=== PATIENT | male | born 1985 | race Caucasian/White ===

== ENCOUNTER 2018-10-07 19:09 | Emergency (ER) | payer BC ==
--- NOTE | 2018-10-07 19:58 | ER Document Report ---
ED Medical Screen (RME) - General Chief Complaint: Numbness of Arm Stated Complaint: NUMBNESS Time Seen by Provider: 10/07/18 19:43 Notes: 33-year-old male patient comes emergency room with multiple neurological symptoms. He reports about 5:15 PM today he developed a blurriness in his vision that involved both eyes. This lasted 20-30 minutes, and resolved and afterwards he developed what he called incoherent speech. He tried to do sign out at work and states that what he was saying was not comprehensible and that he knew what he wanted to say but could not find the words to express himself. This also lasted 20-30 minutes. When it resolved he developed a numbness in the right hand and elbow which also lasted 2030 minutes. There was a mild right -sided headache the entire time the symptoms were occurring. All of the symptoms including the headache have resolved at this point. He reports something similar to this has happened 3 times in the past 6 years, but he is never gone to have medical evaluation of those symptoms. I have greeted and performed a rapid initial assessment of this patient. A comprehensive ED assessment and evaluation of the patient, analysis of test results and completion of the medical decision making process will be conducted by additional ED providers. TRAVEL OUTSIDE OF THE [place] IN LAST 30 DAYS: No - Related Data Allergies/Adverse Reactions: No Known Allergies Allergy (Unverified 10/07/18 19:13) Physical Exam - Vital signs Vitals: Temp Pulse Resp BP Pulse Ox 97.9 F 59 L 20 136/77 H 97 10/07/18 19:41 10/07/18 19:41 10/07/18 19:41 10/07/18 19:41 10/07/18 19:41 Course - Vital Signs Vital signs: Temp Pulse Resp BP Pulse Ox 97.9 F 59 L 20 136/77 H 97 10/07/18 19:41 10/07/18 19:41 10/07/18 19:41 10/07/18 19:41 10/07/18 19:41
[2018-10-07 20:22] LABS: ABSOLUTE BASOPHILS # (AUTO) 0.1 10^3/uL (0.0-0.2); ABSOLUTE EOSINOPHILS # (AUTO) 0.2 10^3/uL (0.0-0.6); ABSOLUTE LYMPHOCYTES (AUTO) 2.5 10^3/uL (0.5-4.7); ABSOLUTE MONOCYTES (AUTO) 0.6 10^3/uL (0.1-1.4); ABSOLUTE NEUT (AUTO) 3.3 10^3/uL (1.7-8.2); BASOPHILS % (AUTO) 1.3 % (0-2); EOSINOPHILS % (AUTO) 2.9 % (0-6); HEMATOCRIT 42.9 % (37.9-51.0); LYMPHOCYTES % (AUTO) 37.7 % (13-45); MEAN CORPUSCULAR HEMOGLOBIN 30.2 pg (27.0-33.4); MEAN CORPUSCULAR HGB CONC 35.1 g/dL (32.0-36.0); MEAN CORPUSCULAR VOLUME 86 fl (80-97); MONOCYTES % (AUTO) 8.8 % (3-13); PLATELET COUNT 305 10^3/uL (150-450); RED BLOOD COUNT 4.99 10^6/uL (4.35-5.55); RED CELL DISTRIBUTION WIDTH 13.1 % (11.5-14.0); SEGMENTED NEUTROPHILS % (AUTO) 49.3 % (42-78); TOTAL CELLS COUNTED % (AUTO) 100 %; WHITE BLOOD COUNT 6.7 10^3/uL (4.0-10.5)
[2018-10-07 20:43] LABS: ALANINE AMINOTRANSFERASE 33 U/L (21-72); ALBUMIN 4.4 g/dL (3.5-5.0); ALKALINE PHOSPHATASE 45 U/L (38-126); ANION GAP 11 (5-19); ASPARTATE AMINO TRANSFERASE 31 U/L (17-59); BILIRUBIN,DIRECT 0.1 mg/dL (0.0-0.4); BILIRUBIN,TOTAL 1.3 mg/dL (0.2-1.3); BLOOD UREA NITROGEN 17 mg/dL (7-20); CARBON DIOXIDE 27 mmol/L (22-30); CHLORIDE 106 mmol/L (98-107); GLUCOSE 94 mg/dL (75-110); POTASSIUM 4.4 mmol/L (3.6-5.0); SODIUM 144.1 mmol/L (137-145); TOTAL PROTEIN 7.4 g/dL (6.3-8.2)
[2018-10-07 20:44] LABS: C-REACTIVE PROTEIN < 5.0 mg/L (<10.0)
[2018-10-07 21:06] LABS: ERYTHROCYTE SEDIMENTATION RATE 4 mm/hr (0-15)
--- NOTE | 2018-10-07 21:24 | RADIOLOGY REPORT (SQ) ---
EXAM DESCRIPTION: MR BRAIN WITHOUT IV CONTRAST COMPLETED DATE/TME: 10/07/2018 19:55 CLINICAL HISTORY: Migratory TIA type symptoms COMPARISON: None TECHNIQUE: Multiplanar images of the brain were obtained without the administration of intravenous contrast FINDINGS: Ventricles and sulci appear within normal limits for the patient's age. No evidence of midline shift or mass effect. No abnormal parenchymal signal noted. No areas of restricted diffusion to suggest acute infarct. No evidence of mass. No extra axial fluid collection. IMPRESSION: No acute abnormalities.
[2018-10-08] MEDS ORDERED: ASPIRIN 81 MG TABLET, CHEWABLE PO ONE (00:50)
--- NOTE | 2018-10-08 00:50 | ER Document Report ---
ED General - General Chief Complaint: Numbness of Arm Stated Complaint: NUMBNESS Time Seen by Provider: 10/07/18 19:43 Mode of Arrival: Ambulatory Information source: Patient Notes: 33-year-old man presented to the emergency room with an episode of thinking coherent speech times 15 minutes, right hand numbness for about 15 minutes and some visual disturbances. Patient states the event occurred at 5:15 PM. His symptoms had resolved completely by the time he was in the ER. He does report that he had a mild right-sided headache during this event. TRAVEL OUTSIDE OF THE [place] IN LAST 30 DAYS: No - HPI Onset: Just prior to arrival Onset/Duration: Gradual Quality of pain: No pain Severity: None Pain Level: Denies Associated symptoms: denies: Chest pain, Fever, Shortness of breath Exacerbated by: Denies Relieved by: Denies Similar symptoms previously: No Recently seen / treated by doctor: No - Related Data Allergies/Adverse Reactions: No Known Allergies Allergy (Unverified 10/07/18 19:13) Past Medical History - General Information source: Patient - Social History Smoking Status: Current Some Day Smoker Cigarette use (# per day): No Chew tobacco use (# tins/day): No Frequency of alcohol use: Occasional Drug Abuse: None Lives with: Family Family History: None Patient has suicidal ideation: No Patient has homicidal ideation: No - Medical History Medical History: Negative Renal/ Medical History: Denies: Hx Peritoneal Dialysis Surgical Hx: Negative Review of Systems - Review of Systems Constitutional: denies: Chills, Fever EENT: No symptoms reported Cardiovascular: No symptoms reported Respiratory: No symptoms reported Gastrointestinal: No symptoms reported Genitourinary: No symptoms reported Male Genitourinary: No symptoms reported Musculoskeletal: No symptoms reported Skin: No symptoms reported Hematologic/Lymphatic: No symptoms reported Neurological/Psychological: See HPI Physical Exam - Vital signs Vitals: Temp Pulse Resp BP Pulse Ox 97.9 F 59 L 20 136/77 H 97 10/07/18 19:41 10/07/18 19:41 10/07/18 19:41 10/07/18 19:41 10/07/18 19:41 Notes: Physical exam: GENERAL: Patient is alert and oriented x3, no acute distress HEAD: Atraumatic, normocephalic. EYES: Pupils equal round and reactive to light, extraocular movements intact, sclera anicteric, conjunctiva are normal. ENT: TMs normal, nares patent, oropharynx clear without exudates. Moist mucous membranes. NECK: Normal range of motion, supple without obvious mass or JVD. Patient has no bruit. LUNGS: Breath sounds clear to auscultation bilaterally and equal. No wheezes rales or rhonchi. HEART: Regular rate and rhythm. She does have a 1/6 systolic murmur at the left lateral sternal border. Rubs or gallops. ABDOMEN: Soft, normoactive bowel sounds. No tenderness to palpation. No guarding, no rebound. No masses appreciated. EXTREMITIES: Normal range of motion, no pitting or edema. No clubbing or cyanosis. NEUROLOGICAL: Cranial nerves II through XII grossly intact. Motor 5/5, sensory grossly intact, cerebellar (finger to nose) good, reflexes symmetrical and normal, normal speech, moving all extremities. Romberg negative. PSYCH: Normal mood, normal affect. SKIN: Warm, Dry, normal turgor, no rashes or lesions noted. Course - Re-evaluation Re-evalutation: 10/08/18 00:45 Note: Patient has no risk factors for early vascular disease. He does have an intermittent soft murmur on heart exam. I discussed this with Dr. Sheets and the plan will be to get an outpatient echo tomorrow to rule out a possible PFO. Otherwise, the plan would include an event recorder and follow-up. 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 While this is possible it could be an atypical migraine, the patient has no history of migraines. MRI of the brain showed no evidence of strokes tonight. Labs and vital signs were stable. 10/08/18 00:47 - Vital Signs Vital signs: Temp Pulse Resp BP Pulse Ox 97.7 F 54 L 14 133/72 H 98 10/08/18 00:55 10/08/18 00:55 10/08/18 00:55 10/08/18 00:55 10/08/18 00:55 - Laboratory Result Diagrams: 10/07/18 20:08 10/07/18 20:08 Laboratory results interpreted by me: 10/07/18 20:08 Magnesium 2.4 H - Diagnostic Test Radiology reviewed: Image reviewed, Reports reviewed - MRI of the brain shows no obvious stroke - EKG Interpretation by Me Rate: Normal Rhythm: NSR - EKG shows normal sinus rhythm with a ventricular rate of 61, no acute ST-T wave changes Discharge - Discharge Clinical Impression: Transient numbness and slurred speech, Headache Condition: Stable Disposition: HOME, SELF-CARE Additional Instructions: As we discussed, the MRI of the brain showed no evidence of stroke tonight. I did discuss getting an echo tomorrow with Dr. Sheets: I want you to call his cell phone tomorrow after 10 AM: [phone]. Tell him who you are and what your symptoms were: He did take your name down and we went over the lab data when I spoke to him this morning. Otherwise, I want you to take an aspirin a day until the workup is complete. Return to the emergency room for any further episodes of vision changes or speech changes or any numbness or weakness. I do want you to follow-up with a primary care doctor to coordinate things as well and if you want to set up an appointment for a neurologist, go right ahead (it may take a while, but the initial step would be getting the heart tests above first). Forms: Return to Work Referrals: MEL SHEETS MD [ACTIVE STAFF] - Follow up as needed (This is Dr. Sheets's office number.)
[2018-10-08 00:56] VITALS: BP 133/72
--- NOTE | 2018-10-08 07:47 | EKG REPORT ---
SEVERITY:- BORDERLINE ECG - SINUS RHYTHM BORDERLINE LEFT AXIS DEVIATION BORDERLINE T ABNORMALITIES, INFERIOR LEADS : Confirmed by: Tom Zamorano MD 08-Oct-2018 07:46:16
== END 2018-10-08 01:00 | disposition home or self-care (01) ==
LOC: ER 19:09
DX: R20.0 Anesthesia of skin (principal); R47.81 Slurred speech; H53.9 Unspecified visual disturbance; R51 Headache; F17.200 Nicotine dependence, unspecified, uncomplicated; R01.1 Cardiac murmur, unspecified
CPT/HCPCS: 36415; 70551; 80053; 83735; 85025; 85652; 86140; 93005; 93010; 99284